=== PATIENT | male | born 1955 | race Caucasian/White ===

== ENCOUNTER 2022-01-07 12:20 | Inpatient (IN) | payer MEDICAID ==
[~2022-01-07] VITALS: Ht 162.6 cm; Wt 95.3 kg
[2022-01-07] MEDS ORDERED: MORPHINE SULFATE 4 MG/ML CPJ (NOT FOR IM USE) IV ONE (13:00)
[2022-01-07] MEDS ORDERED: ONDANSETRON HCL 4MG/2ML INJ IV ONE (13:00)
[2022-01-07] MEDS ORDERED: MAGNESIUM/ALUMINUM HYDROXIDE/SIMETHICONE 30ML UDC PO ONE (13:00)
[2022-01-07] MEDS ORDERED: SODIUM CHLORIDE 0.9% 1,000 ML IV ONE ×2 (13:15→14:30)
[2022-01-07 14:19] LABS: CHLORIDE 103 mEq/L (98-107)
[2022-01-07 14:24] LABS: INR 1.2; PROTHROMBIN TIME 12.9 sec (9.6-11.0)
[2022-01-07 14:29] LABS: MEAN CORPUSCULAR HEMOGLOBIN 22.4 pg (28.0-32.0); MEAN PLATELET VOLUME 8.1 fl (7.4-10.4); PLATELET 254 x1000/uL (130-400); RED BLOOD CELL COUNT 2.68 mill/uL (4.7-6.1)
[2022-01-07 14:34] LABS: ETHANOL BLOOD < 10 mg/dL
[2022-01-07 14:41] LABS: HEMATOCRIT. 20.9 % (42.0-52.0)
[2022-01-07] MEDS ORDERED: PIPERACILLIN/TAZ 3.375G PREMIX 50 ML IV NR ×2 (14:45→22:00)
[2022-01-07] MEDS ORDERED: VANCOMYCIN 1G PREMIX 200 ML IV SCH (14:45)
[2022-01-07] MEDS ORDERED: PIPERACILLIN/TAZOBACTAM 3.375GM/50ML PREMIX IV ONE (14:45)
[2022-01-07] MEDS ORDERED: SODIUM BICARBONATE 8.4% 1 MEQ/ML 50ML SYR IV ONE (14:45)
[2022-01-07] MEDS ORDERED: VANCOMYCIN 1,000 MG in DEXT 5% WATER 250 ML IV NR (15:30)
[2022-01-07] MEDS ORDERED: IOHEXOL-300 100 ML BOTTLE ONE (16:20)
[2022-01-07 17:19] LABS: PLATELET ESTIMATE NORMAL
[2022-01-07 17:58] LABS: CLARITY URINE CLEAR (CLEAR); COLOR URINE YELLOW (YELLOW); KETONES URINE NEGATIVE (NEGATIVE); LEUKOCYTE ESTERASE URINE 3+ (NEGATIVE); NITRITE URINE POSITIVE (NEGATIVE); OCCULT BLOOD URINE NEGATIVE (NEGATIVE); PH URINE 5.5 (4.5-8.0); PROTEIN URINE NEGATIVE (NEGATIVE); SPECIFIC GRAVITY URINE 1.022 (1.005-1.030); UROBILINOGEN URINE 0.2 E.U./dL (0.2-1.0)
[2022-01-07] MEDS ORDERED: NOREPINEPHRINE 8 MG in DEXT 5% WATER 242 ML IV PRN (18:15)
[2022-01-07] MEDS ORDERED: GUAIFENESIN 200MG/10ML SUGAR FREE UDC PO PRN (18:30)
[2022-01-07] MEDS ORDERED: DOCUSATE SODIUM 100MG CAPSULE PO PRN (18:30)
[2022-01-07] MEDS ORDERED: ACETAMINOPHEN 650MG SUPP PR PRN (18:30)
[2022-01-07] MEDS: NOREPINEPHRINE 8MG/250ML PMX 250 ML IV NR ×2 (18:36→23:00)
[2022-01-07 18:38] LABS: *AMPHETAMINES SCREEN URINE NEGATIVE (NEGATIVE); *BARBITURATES SCREEN URINE NEGATIVE (NEGATIVE); *BENZODIAZEPINES SCREEN URINE NEGATIVE (NEGATIVE); *COCAINE SCREEN URINE NEGATIVE (NEGATIVE); CANNABINOID URINE SCREEN NEGATIVE (NEGATIVE); METHADONE URINE SCREEN NEGATIVE (NEGATIVE); OPIATES URINE SCREEN NEGATIVE (NEGATIVE); PHENCYCLIDINE URINE SCREEN NEGATIVE (NEGATIVE)
[2022-01-07] MEDS: PANTOPRAZOLE SODIUM 40 MG/VIAL IV SCH (18:58)
[2022-01-07] MEDS: TRAMADOL 50MG TABLET PO PRN (19:41)
[2022-01-07] MEDS: SODIUM CHLORIDE 0.9% 1,000 ML IV SCH (21:09)
[2022-01-07] MEDS ORDERED: PIPERACILLIN/TAZOBACTAM 3.375 G in DEXTROSE 5% WATER 50 ML IV SCH (22:00)
[2022-01-07] MEDS ORDERED: NALOXONE HCL 0.4MG/ML VIAL IV PRN (22:00)
[2022-01-07 23:15] VITALS: BP 85/49
[2022-01-07 23:30] VITALS: BP 95/49
[2022-01-07 23:45] VITALS: BP 102/54
[2022-01-08] VITALS (83 sets, daily range): BP systolic 28–127; BP diastolic 14–75
[2022-01-08 02:00] LABS: HEMATOCRIT. 25.4 % (42.0-52.0); HEMOGLOBIN. 8.2 g/dL (14.0-18.0); MEAN CORPUSCULAR HEMOGLOBIN 26.3 pg (28.0-32.0); MEAN PLATELET VOLUME 7.4 fl (7.4-10.4); PLATELET 270 x1000/uL (130-400); RED BLOOD CELL COUNT 3.14 mill/uL (4.7-6.1); RED CELL DISTRIBUTION WIDTH 22.8 % (11.6-14.6)
[2022-01-08 03:22] LABS: PLATELET ESTIMATE NORMAL
[2022-01-08] MEDS: TRAMADOL 50MG TABLET PO PRN (05:56)
[2022-01-08] MEDS ORDERED: PIPERACILLIN/TAZOBACTAM 3.375 G in DEXTROSE 5% WATER 50 ML IV SCH (06:00)
[2022-01-08 06:15] LABS: HEMATOCRIT. 24.9 % (42.0-52.0); MEAN CORPUSCULAR HEMOGLOBIN 26.7 pg (28.0-32.0); MEAN CORPUSCULAR VOLUME 83.8 fL (80.0-94.0); MEAN PLATELET VOLUME 7.7 fl (7.4-10.4); PLATELET 193 x1000/uL (130-400); RED BLOOD CELL COUNT 2.98 mill/uL (4.7-6.1); RED CELL DISTRIBUTION WIDTH 22.4 % (11.6-14.6)
[2022-01-08 06:21] LABS: CHLORIDE 112 mEq/L (98-107); HDL CHOLESTEROL 21 mg/dL (40-59); LDL CHOLESTEROL 23 mg/dL (5-100)
[2022-01-08] MEDS ORDERED: NOREPINEPHRINE 32 MG in DEXT 5% WATER 218 ML IV PRN (09:00)
[2022-01-08] MEDS ORDERED: SODIUM BICARBONATE 4% (2.4MEQ) 5ML VIAL IV ONE (09:24)
[2022-01-08] MEDS: SODIUM CHLORIDE 0.9% 1,000 ML IV SCH ×2 (09:27→21:05)
[2022-01-08] MEDS: PIPERACILLIN/TAZOBACTAM 3.375 G in DEXTROSE 5% WATER 50 ML IV SCH ×3 (09:27→21:05)
[2022-01-08] MEDS: PANTOPRAZOLE SODIUM 40 MG/VIAL IV SCH (09:27)
[2022-01-08] MEDS ORDERED: ALBUMIN HUMAN 25GM/100ML (25%) IV NR (13:00)
[2022-01-08] MEDS ORDERED: LIDOCAINE HCL/EPINEPHRINE 1%-EPI 1:100,000 20 ML VIAL INFIL NR (13:00)
[2022-01-08] MEDS ORDERED: LIDOCAINE HCL/EPINEPHRINE 1%-EPI 1:100,000 10 ML VIAL INFIL NR (13:20)
[2022-01-08] MEDS: MIDODRINE HCL 5MG TABLET PO SCH ×2 (13:45→17:36)
[2022-01-08] MEDS ORDERED: IOHEXOL-350 100 ML BOTTLE ONE (14:02)
[2022-01-08] MEDS ORDERED: MORPHINE SULFATE 4 MG/ML CPJ (NOT FOR IM USE) IV NR (15:15)
[2022-01-08 15:34] LABS: HEMATOCRIT. 24.1 % (42.0-52.0); HEMOGLOBIN. 7.4 g/dL (14.0-18.0); MEAN CORPUSCULAR HEMOGLOBIN 25.7 pg (28.0-32.0); MEAN CORPUSCULAR VOLUME 83.2 fL (80.0-94.0); MEAN PLATELET VOLUME 7.6 fl (7.4-10.4); PLATELET 218 x1000/uL (130-400); RED BLOOD CELL COUNT 2.89 mill/uL (4.7-6.1); RED CELL DISTRIBUTION WIDTH 22.9 % (11.6-14.6)
[2022-01-08 15:36] LABS: PLATELET ESTIMATE NORMAL
[2022-01-08 18:04] LABS: PLATELET ESTIMATE NORMAL
[2022-01-09] VITALS (102 sets, daily range): BP systolic 55–138; BP diastolic 16–74
[2022-01-09] MEDS: PIPERACILLIN/TAZOBACTAM 3.375 G in DEXTROSE 5% WATER 50 ML IV SCH ×3 (05:23→21:32)
[2022-01-09] MEDS: TRAMADOL 50MG TABLET PO PRN (05:24)
[2022-01-09 06:03] LABS: HEMATOCRIT. 22.1 % (42.0-52.0); MEAN CORPUSCULAR HEMOGLOBIN 26.7 pg (28.0-32.0); MEAN CORPUSCULAR VOLUME 85.3 fL (80.0-94.0); MEAN PLATELET VOLUME 7.5 fl (7.4-10.4); PLATELET 171 x1000/uL (130-400); RED BLOOD CELL COUNT 2.58 mill/uL (4.7-6.1); RED CELL DISTRIBUTION WIDTH 23.2 % (11.6-14.6)
[2022-01-09 06:12] LABS: CHLORIDE 116 mEq/L (98-107)
[2022-01-09 06:22] LABS: PHOSPHORUS 3.3 mg/dL (2.5-4.9); TOTAL IRON BINDING CAPACITY 216 ug/dL (250-450)
[2022-01-09 06:23] LABS: FERRITIN 52 ng/mL (22-322)
[2022-01-09 06:29] LABS: HEMOGLOBIN. 6.9 g/dL (14.0-18.0)
[2022-01-09 06:34] LABS: HEPATITIS B SURFACE ANTIGEN NEGATIVE
[2022-01-09 06:50] LABS: VITAMIN B12 SERUM 1892 pg/mL (211-911)
[2022-01-09 07:02] LABS: FOLIC ACID (FOLATE) SERUM > 20.00 ng/mL (>5.38)
[2022-01-09] MEDS: MIDODRINE HCL 5MG TABLET PO SCH ×3 (08:59→17:47)
[2022-01-09] MEDS: PANTOPRAZOLE SODIUM 40 MG/VIAL IV SCH (08:59)
[2022-01-09] MEDS: SODIUM CHLORIDE 0.9% 1,000 ML IV SCH ×2 (08:59→21:32)
[2022-01-09 10:09] LABS: PLATELET ESTIMATE NORMAL
[2022-01-09 12:03] LABS: BASOPHILS % 0.2 % (0.0-2.0); EOSINOPHILS % 1.4 % (0.0-5.0); HEMOGLOBIN. 7.7 g/dL (14.0-18.0); LYMPHOCYTES % 9.3 % (20.0-50.0); MEAN CORPUSCULAR HEMOGLOBIN 27.4 pg (28.0-32.0); MEAN CORPUSCULAR VOLUME 85.2 fL (80.0-94.0); MEAN PLATELET VOLUME 7.3 fl (7.4-10.4); MONOCYTES % 8.7 % (2.0-8.0); NEUTROPHILS % 80.4 % (40.0-76.0); PLATELET 146 x1000/uL (130-400); RED BLOOD CELL COUNT 2.82 mill/uL (4.7-6.1); RED CELL DISTRIBUTION WIDTH 22.4 % (11.6-14.6)
[2022-01-10] VITALS (61 sets, daily range): BP systolic 74–146; BP diastolic 43–87
[2022-01-10] MEDS: TRAMADOL 50MG TABLET PO PRN (01:06)
[2022-01-10 05:29] LABS: CHLORIDE 114 mEq/L (98-107)
[2022-01-10 05:30] LABS: BASOPHILS % 0.4 % (0.0-2.0); EOSINOPHILS % 2.1 % (0.0-5.0); HEMATOCRIT. 26.1 % (42.0-52.0); HEMOGLOBIN. 8.5 g/dL (14.0-18.0); LYMPHOCYTES % 9.1 % (20.0-50.0); MEAN CORPUSCULAR HEMOGLOBIN 27.1 pg (28.0-32.0); MEAN CORPUSCULAR VOLUME 83.3 fL (80.0-94.0); MEAN PLATELET VOLUME 7.3 fl (7.4-10.4); MONOCYTES % 8.8 % (2.0-8.0); NEUTROPHILS % 79.6 % (40.0-76.0); PLATELET 160 x1000/uL (130-400); RED BLOOD CELL COUNT 3.14 mill/uL (4.7-6.1)
[2022-01-10 05:33] LABS: PHOSPHORUS 2.9 mg/dL (2.5-4.9)
[2022-01-10] MEDS: PIPERACILLIN/TAZOBACTAM 3.375 G in DEXTROSE 5% WATER 50 ML IV SCH (06:06)
[2022-01-10 07:18] LABS: PLATELET ESTIMATE NORMAL
[2022-01-10] MEDS: PANTOPRAZOLE SODIUM 40 MG/VIAL IV SCH (09:17)
[2022-01-10] MEDS: MIDODRINE HCL 5MG TABLET PO SCH ×3 (09:18→17:26)
[2022-01-10] MEDS: SODIUM CHLORIDE 0.9% 1,000 ML IV SCH ×3 (09:18→23:50)
[2022-01-10] MEDS ORDERED: NALOXONE HCL 0.4MG/ML VIAL IV PRN (10:30)
[2022-01-10] MEDS: CEFTAZIDIME PENTAHYDRATE 1 G in DEXTROSE 5% WATER 50 ML IV SCH ×2 (12:45→20:49)
[2022-01-10] MEDS: IRON SUCROSE COMPLEX 100 MG/5 ML ML IV SCH (14:18)
[2022-01-11] VITALS (22 sets, daily range): BP systolic 88–126; BP diastolic 45–71
[2022-01-11] MEDS: TRAMADOL 50MG TABLET PO PRN (01:23)
[2022-01-11] MEDS: CEFTAZIDIME PENTAHYDRATE 1 G in DEXTROSE 5% WATER 50 ML IV SCH ×3 (04:43→21:38)
[2022-01-11 05:19] LABS: BASOPHILS % 0.3 % (0.0-2.0); EOSINOPHILS % 1.8 % (0.0-5.0); HEMATOCRIT. 24.7 % (42.0-52.0); HEMOGLOBIN. 7.9 g/dL (14.0-18.0); MEAN CORPUSCULAR HEMOGLOBIN 26.9 pg (28.0-32.0); MEAN CORPUSCULAR VOLUME 83.9 fL (80.0-94.0); MEAN PLATELET VOLUME 7.4 fl (7.4-10.4); MONOCYTES % 11.8 % (2.0-8.0); NEUTROPHILS % 75.1 % (40.0-76.0); PLATELET 131 x1000/uL (130-400); RED BLOOD CELL COUNT 2.95 mill/uL (4.7-6.1); RED CELL DISTRIBUTION WIDTH 23.3 % (11.6-14.6)
[2022-01-11 05:22] LABS: CHLORIDE 113 mEq/L (98-107)
[2022-01-11 05:26] LABS: PHOSPHORUS 2.7 mg/dL (2.5-4.9)
[2022-01-11] MEDS: BLOOD SUGAR DIAGNOSTIC STRIP TEST SCH ×4 (06:48→21:00)
[2022-01-11] MEDS: INSULIN LISPRO 100 UNITS/ML SUBCUT SCH ×4 (06:48→21:00)
[2022-01-11] MEDS: MIDODRINE HCL 5MG TABLET PO SCH ×3 (08:21→16:38)
[2022-01-11] MEDS: PANTOPRAZOLE SODIUM 40 MG/VIAL IV SCH (08:21)
[2022-01-11] MEDS: IRON SUCROSE COMPLEX 100 MG/5 ML ML IV SCH (14:46)
[2022-01-11] MEDS: SODIUM CHLORIDE 0.9% 1,000 ML IV SCH (22:29)
[2022-01-12] VITALS: BP 118/62
[2022-01-12] MEDS: TRAMADOL 50MG TABLET PO PRN ×3 (03:27→17:40)
[2022-01-12] MEDS: CEFTAZIDIME PENTAHYDRATE 1 G in DEXTROSE 5% WATER 50 ML IV SCH ×3 (03:28→21:16)
[2022-01-12 04:00] VITALS: BP 121/73
[2022-01-12 07:11] LABS: BASOPHILS % 0.3 % (0.0-2.0); EOSINOPHILS % 0.9 % (0.0-5.0); HEMATOCRIT. 30.2 % (42.0-52.0); HEMOGLOBIN. 9.1 g/dL (14.0-18.0); LYMPHOCYTES % 8.6 % (20.0-50.0); MEAN CORPUSCULAR HEMOGLOBIN 27.2 pg (28.0-32.0); MEAN CORPUSCULAR VOLUME 90.2 fL (80.0-94.0); MEAN PLATELET VOLUME 7.5 fl (7.4-10.4); MONOCYTES % 9.9 % (2.0-8.0); NEUTROPHILS % 80.3 % (40.0-76.0); PLATELET 67 x1000/uL (130-400); RED BLOOD CELL COUNT 3.35 mill/uL (4.7-6.1)
[2022-01-12 07:38] LABS: CHLORIDE 113 mEq/L (98-107)
[2022-01-12 07:45] LABS: PHOSPHORUS 3.2 mg/dL (2.5-4.9)
[2022-01-12] MEDS: BLOOD SUGAR DIAGNOSTIC STRIP TEST SCH ×4 (07:51→21:00)
[2022-01-12] MEDS: INSULIN LISPRO 100 UNITS/ML SUBCUT SCH ×4 (07:52→21:00)
[2022-01-12 08:00] VITALS: BP 118/71
[2022-01-12] MEDS: PANTOPRAZOLE SODIUM 40 MG/VIAL IV SCH (09:05)
[2022-01-12] MEDS: MIDODRINE HCL 5MG TABLET PO SCH ×3 (09:05→17:39)
[2022-01-12] MEDS: MEGESTROL ACETATE 400 MG/10 ML UDC PO SCH (11:33)
[2022-01-12] MEDS: SODIUM CHLORIDE 0.9% 1,000 ML IV SCH (11:34)
[2022-01-12 12:00] VITALS: BP 119/72
[2022-01-12] MEDS: IRON SUCROSE COMPLEX 100 MG/5 ML ML IV SCH (13:26)
[2022-01-12 16:00] VITALS: BP 122/64
[2022-01-12 20:00] VITALS: BP 116/63
[2022-01-13] VITALS (10 sets, daily range): BP systolic 112–135; BP diastolic 57–70
[2022-01-13] MEDS: SODIUM CHLORIDE 0.9% 1,000 ML IV SCH ×2 (00:54→12:21)
[2022-01-13] MEDS: CEFTAZIDIME PENTAHYDRATE 1 G in DEXTROSE 5% WATER 50 ML IV SCH ×2 (04:41→12:27)
[2022-01-13 07:44] LABS: BASOPHILS % 0.3 % (0.0-2.0); EOSINOPHILS % 1.1 % (0.0-5.0); HEMATOCRIT. 26.8 % (42.0-52.0); HEMOGLOBIN. 8.6 g/dL (14.0-18.0); LYMPHOCYTES % 9.8 % (20.0-50.0); MEAN CORPUSCULAR HEMOGLOBIN 26.9 pg (28.0-32.0); MEAN CORPUSCULAR VOLUME 84.2 fL (80.0-94.0); MEAN PLATELET VOLUME 7.4 fl (7.4-10.4); MONOCYTES % 10.3 % (2.0-8.0); NEUTROPHILS % 78.5 % (40.0-76.0); PLATELET 171 x1000/uL (130-400); RED BLOOD CELL COUNT 3.19 mill/uL (4.7-6.1); RED CELL DISTRIBUTION WIDTH 24.4 % (11.6-14.6)
[2022-01-13] MEDS: BLOOD SUGAR DIAGNOSTIC STRIP TEST SCH ×4 (07:50→21:00)
[2022-01-13] MEDS: INSULIN LISPRO 100 UNITS/ML SUBCUT SCH ×4 (08:00→21:00)
[2022-01-13] MEDS: MEGESTROL ACETATE 400 MG/10 ML UDC PO SCH (08:48)
[2022-01-13] MEDS: MIDODRINE HCL 5MG TABLET PO SCH ×3 (08:48→18:45)
[2022-01-13] MEDS: PANTOPRAZOLE SODIUM 40 MG/VIAL IV SCH (08:48)
[2022-01-13] MEDS: TRAMADOL 50MG TABLET PO PRN (12:30)
[2022-01-13] MEDS: MEROPENEM 1000MG in NORMAL SALINE 100ML IV SCH ×2 (15:03→20:41)
[2022-01-13 15:13] LABS: CHLORIDE 110 mEq/L (98-107)
[2022-01-13] MEDS: LIDOCAINE 5% PATCH TOP SCH (16:54)
[2022-01-13] MEDS: ONDANSETRON HCL 4MG/2ML INJ IV PRN (19:14)
[2022-01-14] VITALS (10 sets, daily range): BP systolic 98–124; BP diastolic 58–69
[2022-01-14] MEDS: SODIUM CHLORIDE 0.9% 1,000 ML IV SCH ×2 (02:50→13:18)
[2022-01-14] MEDS: MEROPENEM 1000MG in NORMAL SALINE 100ML IV SCH ×3 (05:25→23:11)
[2022-01-14 06:31] LABS: BASOPHILS % 0.3 % (0.0-2.0); EOSINOPHILS % 0.6 % (0.0-5.0); HEMATOCRIT. 27.1 % (42.0-52.0); HEMOGLOBIN. 8.7 g/dL (14.0-18.0); LYMPHOCYTES % 8.1 % (20.0-50.0); MEAN CORPUSCULAR HEMOGLOBIN 27.3 pg (28.0-32.0); MEAN PLATELET VOLUME 7.4 fl (7.4-10.4); MONOCYTES % 9.6 % (2.0-8.0); NEUTROPHILS % 81.4 % (40.0-76.0); PLATELET 192 x1000/uL (130-400); RED BLOOD CELL COUNT 3.18 mill/uL (4.7-6.1); RED CELL DISTRIBUTION WIDTH 25.2 % (11.6-14.6)
[2022-01-14 07:40] LABS: CHLORIDE 111 mEq/L (98-107)
[2022-01-14] MEDS: INSULIN LISPRO 100 UNITS/ML SUBCUT SCH ×4 (07:56→20:35)
[2022-01-14] MEDS: BLOOD SUGAR DIAGNOSTIC STRIP TEST SCH ×4 (07:56→20:24)
[2022-01-14] MEDS: PANTOPRAZOLE SODIUM 40 MG/VIAL IV SCH (09:06)
[2022-01-14] MEDS: MIDODRINE HCL 5MG TABLET PO SCH ×3 (09:07→16:55)
[2022-01-14] MEDS: LIDOCAINE 5% PATCH TOP SCH (09:09)
[2022-01-14] MEDS: MEGESTROL ACETATE 400 MG/10 ML UDC PO SCH (09:10)
[2022-01-14] MEDS: ONDANSETRON HCL 4MG/2ML INJ IV PRN ×2 (15:38→20:53)
[2022-01-14] MEDS ORDERED: SIMETHICONE 80MG TABLET CHEW PO PRN (17:00)
[2022-01-15] VITALS: BP 113/63
[2022-01-15] MEDS: SODIUM CHLORIDE 0.9% 1,000 ML IV SCH ×2 (01:58→15:12)
[2022-01-15] MEDS: ONDANSETRON HCL 4MG/2ML INJ IV PRN ×3 (03:29→17:51)
[2022-01-15] MEDS: TRAMADOL 50MG TABLET PO PRN (03:31)
[2022-01-15 04:00] VITALS: BP 129/73
[2022-01-15] MEDS: MEROPENEM 1000MG in NORMAL SALINE 100ML IV SCH ×3 (05:17→22:56)
[2022-01-15] MEDS: BLOOD SUGAR DIAGNOSTIC STRIP TEST SCH ×4 (06:20→21:29)
[2022-01-15] MEDS: DEXTROSE 50% WATER 50ML SYRINGE IV PRN (06:27)
[2022-01-15 06:42] LABS: HEMOGLOBIN. 8.5 g/dL (14.0-18.0); MEAN CORPUSCULAR VOLUME 86.2 fL (80.0-94.0); MEAN PLATELET VOLUME 7.3 fl (7.4-10.4); PLATELET 179 x1000/uL (130-400); RED BLOOD CELL COUNT 3.14 mill/uL (4.7-6.1); RED CELL DISTRIBUTION WIDTH 25.7 % (11.6-14.6)
[2022-01-15 07:04] LABS: CHLORIDE 114 mEq/L (98-107)
[2022-01-15] MEDS: INSULIN LISPRO 100 UNITS/ML SUBCUT SCH ×4 (07:20→21:00)
[2022-01-15 08:00] VITALS: BP 130/72
[2022-01-15] MEDS: PANTOPRAZOLE SODIUM 40 MG/VIAL IV SCH (09:00)
[2022-01-15] MEDS: MIDODRINE HCL 5MG TABLET PO SCH ×3 (09:00→17:00)
[2022-01-15] MEDS: LIDOCAINE 5% PATCH TOP SCH (09:01)
[2022-01-15 11:44] VITALS: BP 113/79
[2022-01-15] MEDS: MEGESTROL ACETATE 400 MG/10 ML UDC PO SCH (15:09)
[2022-01-15 16:00] VITALS: BP 134/69
[2022-01-15 20:00] VITALS: BP 133/67
[2022-01-16 01:03] VITALS: BP 132/74
[2022-01-16] MEDS: ONDANSETRON HCL 4MG/2ML INJ IV PRN ×2 (01:11→18:06)
[2022-01-16] MEDS: SODIUM CHLORIDE 0.9% 1,000 ML IV SCH ×3 (02:45→22:09)
[2022-01-16 04:00] VITALS: BP 137/75
[2022-01-16] MEDS: MEROPENEM 1000MG in NORMAL SALINE 100ML IV SCH ×3 (06:40→22:09)
[2022-01-16] MEDS: BLOOD SUGAR DIAGNOSTIC STRIP TEST SCH ×4 (06:44→20:35)
[2022-01-16 07:01] LABS: BASOPHILS % 0.2 % (0.0-2.0); EOSINOPHILS % 0.2 % (0.0-5.0); HEMATOCRIT. 29.1 % (42.0-52.0); HEMOGLOBIN. 9.1 g/dL (14.0-18.0); LYMPHOCYTES % 7.2 % (20.0-50.0); MEAN CORPUSCULAR HEMOGLOBIN 26.8 pg (28.0-32.0); MEAN CORPUSCULAR VOLUME 85.5 fL (80.0-94.0); MEAN PLATELET VOLUME 6.9 fl (7.4-10.4); MONOCYTES % 7.2 % (2.0-8.0); NEUTROPHILS % 85.2 % (40.0-76.0); PLATELET 214 x1000/uL (130-400); RED BLOOD CELL COUNT 3.41 mill/uL (4.7-6.1); RED CELL DISTRIBUTION WIDTH 25.2 % (11.6-14.6)
[2022-01-16] MEDS: INSULIN LISPRO 100 UNITS/ML SUBCUT SCH ×4 (07:20→20:46)
[2022-01-16 07:50] LABS: PLATELET ESTIMATE NORMAL
[2022-01-16 08:00] VITALS: BP 127/76
[2022-01-16] MEDS ORDERED: METOCLOPRAMIDE HCL 10MG/2ML VIAL IV SCH ×2 (09:00→18:00)
[2022-01-16] MEDS: PANTOPRAZOLE SODIUM 40 MG/VIAL IV SCH ×2 (09:27→18:06)
[2022-01-16] MEDS: MEGESTROL ACETATE 400 MG/10 ML UDC PO SCH (09:27)
[2022-01-16] MEDS: MIDODRINE HCL 5MG TABLET PO SCH ×3 (09:28→17:00)
[2022-01-16] MEDS: LIDOCAINE 5% PATCH TOP SCH (09:29)
[2022-01-16 10:01] LABS: CHLORIDE 111 mEq/L (98-107)
[2022-01-16 12:00] VITALS: BP 129/72
[2022-01-16 16:00] VITALS: BP 139/76
[2022-01-16 20:00] VITALS: BP 152/82
[2022-01-16] MEDS: DEXTROSE 50% WATER 50ML SYRINGE IV PRN (20:39)
[2022-01-17] VITALS: BP 131/74
[2022-01-17] MEDS: ONDANSETRON HCL 4MG/2ML INJ IV PRN ×2 (00:13→20:21)
[2022-01-17] MEDS: SODIUM CHLORIDE 0.9% 1,000 ML IV SCH (03:14)
[2022-01-17 04:00] VITALS: BP 131/74
[2022-01-17] MEDS: BLOOD SUGAR DIAGNOSTIC STRIP TEST SCH ×4 (06:34→21:36)
[2022-01-17] MEDS: MEROPENEM 1000MG in NORMAL SALINE 100ML IV SCH ×3 (06:39→21:38)
[2022-01-17] MEDS: DEXTROSE 50% WATER 50ML SYRINGE IV PRN (06:39)
[2022-01-17 07:14] LABS: HEMATOCRIT. 29.1 % (42.0-52.0); HEMOGLOBIN. 9.4 g/dL (14.0-18.0); MEAN CORPUSCULAR HEMOGLOBIN 27.5 pg (28.0-32.0); MEAN CORPUSCULAR VOLUME 84.8 fL (80.0-94.0); MEAN PLATELET VOLUME 6.6 fl (7.4-10.4); PLATELET 265 x1000/uL (130-400); RED BLOOD CELL COUNT 3.43 mill/uL (4.7-6.1)
[2022-01-17] MEDS: INSULIN LISPRO 100 UNITS/ML SUBCUT SCH ×4 (07:20→21:00)
[2022-01-17 07:41] LABS: CHLORIDE 117 mEq/L (98-107)
[2022-01-17 08:00] VITALS: BP 136/76
[2022-01-17] MEDS: MIDODRINE HCL 5MG TABLET PO SCH ×3 (09:00→15:54)
[2022-01-17] MEDS: MEGESTROL ACETATE 400 MG/10 ML UDC PO SCH (09:44)
[2022-01-17] MEDS: PANTOPRAZOLE SODIUM 40 MG/VIAL IV SCH ×2 (09:44→15:54)
[2022-01-17] MEDS: LIDOCAINE 5% PATCH TOP SCH (09:45)
[2022-01-17 12:00] VITALS: BP 127/78
[2022-01-17 12:55] LABS: PLATELET ESTIMATE NORMAL
[2022-01-17] MEDS: DEXT 5%/0.45% NACL KCL 10MEQ/L 1,000 ML IV SCH (13:37)
[2022-01-17] MEDS: TRAMADOL 50MG TABLET PO PRN (15:55)
[2022-01-17 16:00] VITALS: BP 147/83
[2022-01-17 20:00] VITALS: BP 142/80
[2022-01-18] VITALS: BP 136/84
[2022-01-18] MEDS: DEXT 5%/0.45% NACL KCL 10MEQ/L 1,000 ML IV SCH ×2 (01:21→15:42)
[2022-01-18] MEDS: TRAMADOL 50MG TABLET PO PRN ×2 (01:32→10:43)
[2022-01-18 04:00] VITALS: BP 134/78
[2022-01-18] MEDS: MEROPENEM 1000MG in NORMAL SALINE 100ML IV SCH ×3 (05:15→22:08)
[2022-01-18] MEDS: BLOOD SUGAR DIAGNOSTIC STRIP TEST SCH ×4 (06:33→21:20)
[2022-01-18] MEDS: INSULIN LISPRO 100 UNITS/ML SUBCUT SCH ×4 (07:20→21:00)
[2022-01-18 07:35] LABS: CHLORIDE 118 mEq/L (98-107)
[2022-01-18 08:00] VITALS: BP 155/101
[2022-01-18] MEDS: MIDODRINE HCL 5MG TABLET PO SCH ×3 (09:00→16:59)
[2022-01-18] MEDS: PANTOPRAZOLE SODIUM 40 MG/VIAL IV SCH ×2 (09:35→17:27)
[2022-01-18] MEDS: MEGESTROL ACETATE 400 MG/10 ML UDC PO SCH (09:35)
[2022-01-18] MEDS: LIDOCAINE 5% PATCH TOP SCH (09:36)
[2022-01-18] MEDS ORDERED: POTASSIUM CHLORIDE INJ 40 MEQ in DEXT 5% WATER 250 ML IV ONE (09:45)
[2022-01-18] MEDS ORDERED: KCL 20MEQ/100ML X 2 FOR TOTAL KCL 40MEQ/200ML IV SCH (11:00)
[2022-01-18 12:00] VITALS: BP 158/123
[2022-01-18] MEDS ORDERED: MENTHOL/LANOLIN/CALAMINE/ZN OX OINT 71GM TOP PRN (14:15)
[2022-01-18 20:00] VITALS: BP 162/92
[2022-01-19] VITALS: BP 147/88
[2022-01-19 03:39] LABS: HEMATOCRIT. 34.2 % (42.0-52.0); HEMOGLOBIN. 10.7 g/dL (14.0-18.0); MEAN CORPUSCULAR HEMOGLOBIN 26.2 pg (28.0-32.0); MEAN CORPUSCULAR VOLUME 83.8 fL (80.0-94.0); MEAN PLATELET VOLUME 6.8 fl (7.4-10.4); PLATELET 265 x1000/uL (130-400); RED BLOOD CELL COUNT 4.09 mill/uL (4.7-6.1); RED CELL DISTRIBUTION WIDTH 24.5 % (11.6-14.6)
[2022-01-19 03:46] LABS: INR 1.3; PROTHROMBIN TIME 13.5 sec (9.6-11.0)
[2022-01-19 04:00] VITALS: BP 144/88
[2022-01-19 04:00] LABS: CHLORIDE 118 mEq/L (98-107)
[2022-01-19] MEDS: DEXT 5%/0.45% NACL KCL 10MEQ/L 1,000 ML IV SCH ×2 (04:35→20:05)
[2022-01-19] MEDS: MEROPENEM 1000MG in NORMAL SALINE 100ML IV SCH ×3 (05:33→21:26)
[2022-01-19] MEDS: BLOOD SUGAR DIAGNOSTIC STRIP TEST SCH ×4 (07:01→21:09)
[2022-01-19] MEDS: INSULIN LISPRO 100 UNITS/ML SUBCUT SCH ×4 (07:20→21:00)
[2022-01-19 07:52] LABS: PLATELET ESTIMATE NORMAL
[2022-01-19 08:00] VITALS: BP 106/54
[2022-01-19 08:08] VITALS: BP 141/89
[2022-01-19] MEDS: MEGESTROL ACETATE 400 MG/10 ML UDC PO SCH (09:00)
[2022-01-19] MEDS: MIDODRINE HCL 5MG TABLET PO SCH ×3 (09:00→17:00)
[2022-01-19] MEDS: PANTOPRAZOLE SODIUM 40 MG/VIAL IV SCH ×2 (09:51→18:47)
[2022-01-19] MEDS: LIDOCAINE 5% PATCH TOP SCH (09:51)
[2022-01-19] MEDS ORDERED: PROPOFOL 200MG/20ML VIAL IV ONE (11:39)
[2022-01-19] MEDS ORDERED: PHENYLEPHRINE HCL 10 MG/ML 1ML (IV VIAL) IV ONE (11:39)
[2022-01-19] MEDS ORDERED: SIMETHICONE 40 MG/0.6 ML 15ML ONE (12:20)
[2022-01-19] MEDS ORDERED: DEXAMETHASONE 4MG/ML 1ML VIAL ONE (12:32)
[2022-01-19] MEDS ORDERED: LIDOCAINE HCL 1% 10 MG/ML 10ML VIAL ONE (12:32)
[2022-01-19] MEDS ORDERED: ONDANSETRON HCL 4MG/2ML INJ ONE (12:32)
[2022-01-19 16:00] VITALS: BP 124/69
[2022-01-19] MEDS: ONDANSETRON HCL 4MG/2ML INJ IV PRN (18:47)
[2022-01-19] MEDS: METOCLOPRAMIDE HCL 10MG/2ML VIAL IV SCH ×2 (18:49→23:20)
[2022-01-19 20:12] VITALS: BP 112/69
[2022-01-20] VITALS: BP 128/71
[2022-01-20 04:00] VITALS: BP 117/64
[2022-01-20] MEDS: METOCLOPRAMIDE HCL 10MG/2ML VIAL IV SCH ×4 (05:59→23:21)
[2022-01-20] MEDS: MEROPENEM 1000MG in NORMAL SALINE 100ML IV SCH ×3 (05:59→21:13)
[2022-01-20] MEDS: DEXT 5%/0.45% NACL KCL 10MEQ/L 1,000 ML IV SCH ×2 (06:40→18:49)
[2022-01-20] MEDS: BLOOD SUGAR DIAGNOSTIC STRIP TEST SCH ×4 (06:41→21:12)
[2022-01-20] MEDS: INSULIN LISPRO 100 UNITS/ML SUBCUT SCH ×4 (07:20→21:00)
[2022-01-20 08:00] VITALS: BP 142/73
[2022-01-20] MEDS: MIDODRINE HCL 5MG TABLET PO SCH ×3 (09:00→16:57)
[2022-01-20] MEDS: LIDOCAINE 5% PATCH TOP SCH (09:45)
[2022-01-20] MEDS: MEGESTROL ACETATE 400 MG/10 ML UDC PO SCH (09:45)
[2022-01-20] MEDS: PANTOPRAZOLE SODIUM 40 MG/VIAL IV SCH ×2 (09:45→18:14)
[2022-01-20] MEDS ORDERED: NALOXONE HCL 0.4MG/ML VIAL IV PRN (11:45)
[2022-01-20 12:00] VITALS: BP 140/84
[2022-01-20] MEDS: HYDROMORPHONE HCL/PF 2MG/ML CPJ IV PRN ×2 (12:16→21:58)
[2022-01-20 13:01] LABS: HEMATOCRIT. 33.8 % (42.0-52.0); HEMOGLOBIN. 10.5 g/dL (14.0-18.0); MEAN CORPUSCULAR HEMOGLOBIN 26.9 pg (28.0-32.0); MEAN CORPUSCULAR VOLUME 86.2 fL (80.0-94.0); MEAN PLATELET VOLUME 6.7 fl (7.4-10.4); PLATELET 209 x1000/uL (130-400); RED BLOOD CELL COUNT 3.92 mill/uL (4.7-6.1); RED CELL DISTRIBUTION WIDTH 24.7 % (11.6-14.6)
[2022-01-20 13:13] LABS: CHLORIDE 118 mEq/L (98-107)
[2022-01-20 16:00] VITALS: BP 119/92
[2022-01-20] MEDS: SUCRALFATE 1 G/10 ML UDC PO SCH ×2 (18:14→21:10)
[2022-01-20 18:44] LABS: PLATELET ESTIMATE NORMAL
[2022-01-20 20:00] VITALS: BP 138/86
[2022-01-21] VITALS: BP 121/80
[2022-01-21 04:00] VITALS: BP 137/75
[2022-01-21] MEDS: SUCRALFATE 1 G/10 ML UDC PO SCH ×4 (06:07→20:42)
[2022-01-21] MEDS: METOCLOPRAMIDE HCL 10MG/2ML VIAL IV SCH ×4 (06:08→23:45)
[2022-01-21] MEDS: MEROPENEM 1000MG in NORMAL SALINE 100ML IV SCH ×3 (06:09→21:27)
[2022-01-21 06:30] LABS: CHLORIDE 118 mEq/L (98-107)
[2022-01-21] MEDS: BLOOD SUGAR DIAGNOSTIC STRIP TEST SCH ×4 (06:43→20:42)
[2022-01-21 08:00] VITALS: BP 134/88
[2022-01-21] MEDS: HYDROMORPHONE HCL/PF 2MG/ML CPJ IV PRN ×2 (08:10→17:33)
[2022-01-21 08:24] LABS: HEMOGLOBIN. 10.2 g/dL (14.0-18.0); MEAN CORPUSCULAR HEMOGLOBIN 26.8 pg (28.0-32.0); MEAN CORPUSCULAR VOLUME 86.4 fL (80.0-94.0); MEAN PLATELET VOLUME 7.1 fl (7.4-10.4); PLATELET 188 x1000/uL (130-400); RED BLOOD CELL COUNT 3.82 mill/uL (4.7-6.1); RED CELL DISTRIBUTION WIDTH 24.7 % (11.6-14.6)
[2022-01-21] MEDS: INSULIN LISPRO 100 UNITS/ML SUBCUT SCH ×4 (09:10→20:43)
[2022-01-21] MEDS: MIDODRINE HCL 5MG TABLET PO SCH ×3 (09:14→17:34)
[2022-01-21] MEDS: MEGESTROL ACETATE 400 MG/10 ML UDC PO SCH (09:14)
[2022-01-21] MEDS: DEXT 5%/0.45% NACL KCL 10MEQ/L 1,000 ML IV SCH ×2 (09:21→22:56)
[2022-01-21] MEDS: LIDOCAINE 5% PATCH TOP SCH (09:21)
[2022-01-21] MEDS: PANTOPRAZOLE SODIUM 40 MG/VIAL IV SCH ×2 (09:23→17:32)
[2022-01-21] MEDS: ONDANSETRON HCL 4MG/2ML INJ IV PRN (09:34)
[2022-01-21 16:00] VITALS: BP 114/77
[2022-01-21 20:00] VITALS: BP 107/65
[2022-01-21 23:25] LABS: PLATELET ESTIMATE NORMAL
[2022-01-22] VITALS: BP 125/79
[2022-01-22] MEDS: HYDROMORPHONE HCL/PF 2MG/ML CPJ IV PRN ×3 (02:31→22:11)
[2022-01-22 04:00] VITALS: BP 115/71
[2022-01-22] MEDS: METOCLOPRAMIDE HCL 10MG/2ML VIAL IV SCH ×3 (05:53→17:17)
[2022-01-22] MEDS: MEROPENEM 1000MG in NORMAL SALINE 100ML IV SCH ×3 (05:53→22:10)
[2022-01-22 06:25] LABS: BASOPHILS % 0.3 % (0.0-2.0); HEMATOCRIT. 28.8 % (42.0-52.0); HEMOGLOBIN. 9.1 g/dL (14.0-18.0); LYMPHOCYTES % 7.9 % (20.0-50.0); MEAN CORPUSCULAR HEMOGLOBIN 27.2 pg (28.0-32.0); MEAN CORPUSCULAR VOLUME 85.6 fL (80.0-94.0); MEAN PLATELET VOLUME 6.9 fl (7.4-10.4); NEUTROPHILS % 86.8 % (40.0-76.0); PLATELET 136 x1000/uL (130-400); RED BLOOD CELL COUNT 3.36 mill/uL (4.7-6.1); RED CELL DISTRIBUTION WIDTH 24.2 % (11.6-14.6)
[2022-01-22] MEDS: SUCRALFATE 1 G/10 ML UDC PO SCH ×4 (06:33→22:09)
[2022-01-22] MEDS: BLOOD SUGAR DIAGNOSTIC STRIP TEST SCH ×4 (06:33→21:00)
[2022-01-22] MEDS: INSULIN LISPRO 100 UNITS/ML SUBCUT SCH ×4 (07:09→21:00)
[2022-01-22 07:49] LABS: CHLORIDE 115 mEq/L (98-107)
[2022-01-22 08:00] VITALS: BP 114/70
[2022-01-22] MEDS ORDERED: KCL 10MEQ/50ML PREMIX 50 ML IV NR (10:00)
[2022-01-22] MEDS: PANTOPRAZOLE SODIUM 40 MG/VIAL IV SCH ×2 (10:09→17:17)
[2022-01-22] MEDS: MIDODRINE HCL 5MG TABLET PO SCH ×3 (10:09→17:17)
[2022-01-22] MEDS: MEGESTROL ACETATE 400 MG/10 ML UDC PO SCH (10:09)
[2022-01-22] MEDS: LIDOCAINE 5% PATCH TOP SCH (10:10)
[2022-01-22 12:00] VITALS: BP 115/73
[2022-01-22 16:00] VITALS: BP 111/70
[2022-01-22] MEDS: DEXT 5%/0.45% NACL KCL 10MEQ/L 1,000 ML IV SCH (17:18)
[2022-01-22 20:00] VITALS: BP 112/71
[2022-01-23] VITALS: BP 137/89
[2022-01-23] MEDS: DEXT 5%/0.45% NACL KCL 10MEQ/L 1,000 ML IV SCH ×2 (01:51→17:06)
[2022-01-23] MEDS: METOCLOPRAMIDE HCL 10MG/2ML VIAL IV SCH ×5 (01:51→23:58)
[2022-01-23 04:00] VITALS: BP 129/74
[2022-01-23] MEDS: HYDROMORPHONE HCL/PF 2MG/ML CPJ IV PRN ×3 (05:12→20:23)
[2022-01-23] MEDS: MEROPENEM 1000MG in NORMAL SALINE 100ML IV SCH ×3 (06:06→22:04)
[2022-01-23] MEDS: SUCRALFATE 1 G/10 ML UDC PO SCH ×4 (06:06→21:56)
[2022-01-23] MEDS: BLOOD SUGAR DIAGNOSTIC STRIP TEST SCH ×4 (06:53→21:59)
[2022-01-23] MEDS: INSULIN LISPRO 100 UNITS/ML SUBCUT SCH ×4 (07:20→21:00)
[2022-01-23 08:00] VITALS: BP 122/65
[2022-01-23 08:55] LABS: CHLORIDE 112 mEq/L (98-107)
[2022-01-23] MEDS: LIDOCAINE 5% PATCH TOP SCH (09:00)
[2022-01-23] MEDS: MIDODRINE HCL 5MG TABLET PO SCH ×3 (10:24→17:00)
[2022-01-23] MEDS: MEGESTROL ACETATE 400 MG/10 ML UDC PO SCH (10:24)
[2022-01-23] MEDS: PANTOPRAZOLE SODIUM 40 MG/VIAL IV SCH ×2 (10:24→17:05)
[2022-01-23 12:00] VITALS: BP 108/72
[2022-01-23 16:00] VITALS: BP 138/75
[2022-01-23 19:59] VITALS: BP 130/82
[2022-01-23] MEDS: ONDANSETRON HCL 4MG/2ML INJ IV PRN (21:02)
[2022-01-24] VITALS: BP 140/73
[2022-01-24 04:00] VITALS: BP 126/77
[2022-01-24] MEDS: HYDROMORPHONE HCL/PF 2MG/ML CPJ IV PRN ×4 (04:11→22:01)
[2022-01-24] MEDS: DEXT 5%/0.45% NACL KCL 10MEQ/L 1,000 ML IV SCH (04:22)
[2022-01-24] MEDS: METOCLOPRAMIDE HCL 10MG/2ML VIAL IV SCH ×3 (05:39→16:32)
[2022-01-24] MEDS: MEROPENEM 1000MG in NORMAL SALINE 100ML IV SCH ×3 (05:39→21:48)
[2022-01-24] MEDS: SUCRALFATE 1 G/10 ML UDC PO SCH ×4 (05:52→21:48)
[2022-01-24] MEDS: BLOOD SUGAR DIAGNOSTIC STRIP TEST SCH ×4 (05:57→21:48)
[2022-01-24] MEDS: INSULIN LISPRO 100 UNITS/ML SUBCUT SCH ×4 (07:20→21:00)
[2022-01-24 08:00] VITALS: BP 152/94
[2022-01-24 08:26] LABS: CHLORIDE 114 mEq/L (98-107)
[2022-01-24 08:37] LABS: EOSINOPHILS % 0.2 % (0.0-5.0); HEMATOCRIT. 33.8 % (42.0-52.0); HEMOGLOBIN. 10.5 g/dL (14.0-18.0); LYMPHOCYTES % 7.1 % (20.0-50.0); MEAN CORPUSCULAR HEMOGLOBIN 26.3 pg (28.0-32.0); MEAN CORPUSCULAR VOLUME 84.5 fL (80.0-94.0); MEAN PLATELET VOLUME 8.4 fl (7.4-10.4); MONOCYTES % 4.7 % (2.0-8.0); PLATELET 129 x1000/uL (130-400); RED CELL DISTRIBUTION WIDTH 23.3 % (11.6-14.6)
[2022-01-24] MEDS: LIDOCAINE 5% PATCH TOP SCH (09:00)
[2022-01-24] MEDS: PANTOPRAZOLE SODIUM 40 MG/VIAL IV SCH ×2 (09:00→16:31)
[2022-01-24] MEDS: MIDODRINE HCL 5MG TABLET PO SCH ×3 (09:01→16:32)
[2022-01-24] MEDS: MEGESTROL ACETATE 400 MG/10 ML UDC PO SCH (09:02)
[2022-01-24 12:00] VITALS: BP 139/84
[2022-01-24 16:00] VITALS: BP 133/89
[2022-01-24 20:00] VITALS: BP 139/89
[2022-01-25] VITALS (7 sets, daily range): BP systolic 43–136; BP diastolic 33–88
[2022-01-25] MEDS: METOCLOPRAMIDE HCL 10MG/2ML VIAL IV SCH (01:28)
[2022-01-25] MEDS ORDERED: FUROSEMIDE 100MG/10ML VIAL IVP NR (01:45)
[2022-01-25] MEDS ORDERED: IPRATROPIUM BROMIDE (0.02%) 0.5MG/2.5ML NEB HHN PRN (02:00)
[2022-01-25 03:12] LABS: BG BASE EXCESS -12.9 mmol/L (-2.0-2.0); BG CARBOXYHEMOGLOBIN 0.7 % (0.5-1.5); BG DEOXYHEMOGLOBIN 2.4 % (0.0-5.0); BG FRACTION INSPIRED OXYGEN 50; BG HCO3 ACT 12.9 mmol/L (22.0-26.0); BG METHEMOGLOBIN 0.4 % (0.0-1.5); BG OXYGEN SATURATION 97.6 % (92.0-98.5); BG OXYHEMOGLOBIN 96.5 % (94.0-97.0); BG PCO2 29.8 mmHg (35.0-45.0); BG PH 7.254 (7.350-7.450); BG PO2 108.5 mmHg (75.0-100.0); BG SAMPLE SITE RIGHT RADIAL; BG TOTAL HEMOGLOBIN 12.5 g/dL (12.0-18.0); BG VENT MODE MASK - BIPAP
[2022-01-25] MEDS ORDERED: SODIUM BICARBONATE 8.4% 1 MEQ/ML 50ML SYR IV NR (03:45)
[2022-01-25] MEDS ORDERED: NOREPINEPHRINE 32 MG in DEXT 5% WATER 218 ML IV PRN (05:15)
[2022-01-25] MEDS ORDERED: DOPAMINE 800MG PREMIX (DOUBLE) 250 ML IV PRN (05:15)
[2022-01-25] MEDS ORDERED: KETAMINE HCL 50 MG/ML 10ML IV NR (05:30)
[2022-01-25] MEDS ORDERED: PHENYLEPHRINE 100 MG in DEXT 5% WATER 240 ML IV PRN (06:30)
[2022-01-25 06:45] LABS: BG BASE EXCESS -25.5 mmol/L (-2.0-2.0); BG CARBOXYHEMOGLOBIN 0.1 % (0.5-1.5); BG DEOXYHEMOGLOBIN 13.2 % (0.0-5.0); BG FRACTION INSPIRED OXYGEN 100; BG METHEMOGLOBIN 0.6 % (0.0-1.5); BG OXYGEN SATURATION 86.7 % (92.0-98.5); BG OXYHEMOGLOBIN 86.1 % (94.0-97.0); BG PCO2 91.4 mmHg (35.0-45.0); BG PH 6.699 (7.350-7.450); BG PO2 92.3 mmHg (75.0-100.0); BG SAMPLE SITE LEFT RADIAL; BG TOTAL HEMOGLOBIN 10.9 g/dL (12.0-18.0); BG VENT MODE VENT - AC
[2022-01-25] MEDS ORDERED: SODIUM BICARBONATE 8.4% 1 MEQ/ML 50ML SYR IV SCH (07:00)
[2022-01-25] MEDS ORDERED: EPINEPHRINE 10 MG in SODIUM CHLORIDE 0.9% 240 ML IV PRN (08:15)
[2022-01-25] MEDS ORDERED: SODIUM BICARBONATE 150 MEQ in DEXTROSE 5% WATER 1,000 ML IV SCH (09:00)
== END 2022-01-25 12:05 | DRG 720 ==
LOC: ER 12:20 → EDBEDREQ 18:12 → EDBEDREQSVC 18:12 → EDBEDREQTM 18:12 → MICUSO 01-08 00:45 → MICUNO 01-08 01:42 → 5EST 01-11 09:00 → 3WST 01-14 17:46 → MICUNO 01-25 04:55 → MICUSO 01-25 05:44
PROVIDERS: ADMIT Hospitalist; ATTEND Hospitalist
PROC: 30233N1 Transfusion of Nonautologous Red Blood Cells into Peripheral Vein, Percutaneous Approach (ICD-10-PCS; 2022-01-07)
PROC: 06HY33Z Insertion of Infusion Device into Lower Vein, Percutaneous Approach (ICD-10-PCS; 2022-01-08)
PROC: B54BZZA Ultrasonography of Right Lower Extremity Veins, Guidance (ICD-10-PCS; 2022-01-08)
PROC: 0W9930Z Drainage of Right Pleural Cavity with Drainage Device, Percutaneous Approach (ICD-10-PCS; 2022-01-08)
PROC: 0DB78ZX Excision of Stomach, Pylorus, Via Natural or Artificial Opening Endoscopic, Diagnostic (ICD-10-PCS; principal; 2022-01-19)
PROC: 0D768ZZ Dilation of Stomach, Via Natural or Artificial Opening Endoscopic (ICD-10-PCS; 2022-01-19)
PROC: 0D958ZZ Drainage of Esophagus, Via Natural or Artificial Opening Endoscopic (ICD-10-PCS; 2022-01-19)
PROC: 0D968ZZ Drainage of Stomach, Via Natural or Artificial Opening Endoscopic (ICD-10-PCS; 2022-01-19)
PROC: 5A1935Z Respiratory Ventilation, Less than 24 Consecutive Hours (ICD-10-PCS; 2022-01-25)
PROC: 0BH17EZ Insertion of Endotracheal Airway into Trachea, Via Natural or Artificial Opening (ICD-10-PCS; 2022-01-25)
PROC: 5A09357 Assistance with Respiratory Ventilation, Less than 24 Consecutive Hours, Continuous Positive Airway Pressure (ICD-10-PCS; 2022-01-25)
PROC: 5A12012 Performance of Cardiac Output, Single, Manual (ICD-10-PCS; 2022-01-25)
DX: A41.51 Sepsis due to Escherichia coli [E. coli] (principal); J96.01 Acute respiratory failure with hypoxia; I46.9 Cardiac arrest, cause unspecified; R65.21 Severe sepsis with septic shock; J86.9 Pyothorax without fistula; E43 Unspecified severe protein-calorie malnutrition; E87.20 Acidosis, unspecified; K31.1 Adult hypertrophic pyloric stenosis; J91.8 Pleural effusion in other conditions classified elsewhere; K76.6 Portal hypertension; E88.09 Other disorders of plasma-protein metabolism, not elsewhere classified; D63.8 Anemia in other chronic diseases classified elsewhere; D50.9 Iron deficiency anemia, unspecified; Z20.822 Contact with and (suspected) exposure to COVID-19; E11.9 Type 2 diabetes mellitus without complications; N39.0 Urinary tract infection, site not specified; K74.60 Unspecified cirrhosis of liver; B19.20 Unspecified viral hepatitis C without hepatic coma; E80.6 Other disorders of bilirubin metabolism; F10.10 Alcohol abuse, uncomplicated; R13.12 Dysphagia, oropharyngeal phase; Z95.828 Presence of other vascular implants and grafts; Z86.718 Personal history of other venous thrombosis and embolism; Z68.36 Body mass index [BMI] 36.0-36.9, adult; Z93.3 Colostomy status; Z85.028 Personal history of other malignant neoplasm of stomach
CPT/HCPCS: 31500; 32555; 36415; 36573; 36600; 71045; 71250; 71275; 74018; 74177; 76700; 80048; 80053; 80061; 80076; 80305; 80320; 81003; 82040; 82105; 82375; 82607; 82728; 82746; 82805; 82962; 83036; 83540; 83550; 83605; 83615; 83735; 83880; 84100; 84145; 84443; 84484; 85025; 85044; 86705; 86709; 86803; 86850; 86900; 86920; 87077; 87186; 87340; 87426; 88108; 88305; 93005; 93970; 97162; 97530; 99291; C1725; C1769; C9113; C9803; J0713; J1100; J1170; J1265; J1815; J1940; J2185; J2270; J2370; J2405; J2543; J2704; J2765; J3370; J3480; J3490; J7030; J7060; J7070; P9016; P9047; Q9967; A4315; G0480